=== PATIENT | male | born 1955 | race Caucasian/White ===

== ENCOUNTER 2020-04-27 04:37 | Emergency (ER) | payer OTHER ==
[~2020-04-27] VITALS: Ht 170.2 cm; Wt 69.0 kg
[2020-04-27] MEDS ORDERED: ACETAMINOPHEN 325MG TABLET PO ONE (08:30)
[2020-04-27 09:49] VITALS: BP 137/75
== END 2020-04-27 10:16 | disposition home or self-care (01) ==
LOC: ER 05:14
DX: S61.411A Laceration without foreign body of right hand, initial encounter (principal); R07.81 Pleurodynia; M54.5 Low back pain; Z85.9 Personal history of malignant neoplasm, unspecified; Z88.6 Allergy status to analgesic agent; V43.52XA Car driver injured in collision with other type car in traffic accident, initial encounter; Y93.89 Activity, other specified; Y92.488 Other paved roadways as the place of occurrence of the external cause
CPT/HCPCS: 71101; 99283; A4217; Z7610